=== PATIENT | female | born 1990 | race Native Hawaiian/Other Pacific Islander ===

== ENCOUNTER 2016-08-09 04:18 | Emergency (ER) | payer SELFPAY ==
--- NOTE | 2016-08-09 04:34 | ED ---
General Adult HPI - General Chief complaint: Vaginal Bleeding Stated complaint: Spotting 10 wks pg Time Seen by Provider: 08/09/16 04:20 Source: patient, RN notes reviewed Mode of arrival: ambulatory Limitations: no limitations - History of Present Illness Initial comments: This is a 26-year-old female who presents to the emergency department planning that she's having some vaginal spotting. Patient states she has about 12 weeks . Patient states she has a little abdominal pain probably to out of 10 but there is no significant abdominal cramping. Patient denies any dysuria hematuria urinary frequency. Patient denies any difficulty breathing or shortness of breath. Patient denies any injury or trauma. Patient denies any lightheadedness or dizziness. Patient denies any shortness of breath or chest pain. - Related Data Home Medications Medication Instructions Recorded Confirmed No Known Home Medications [No 08/09/16 08/09/16 Known Home Medications] Allergies Allergy/AdvReac Type Severity Reaction Status Date / Time No Known Allergies Allergy Verified 12/20/14 10:39 Review of Systems ROS Statement: Those systems with pertinent positive or pertinent negative responses have been documented in the HPI. ROS Other: All systems not noted in ROS Statement are negative. Past Medical History Past Medical History: No Reported History Additional Past Medical History / Comment(s): FX RIGHT WRIST (12/14/14)- STATES SHE HAS A SPLINT AND SLING ON. History of Any Multi-Drug Resistant Organisms: MRSA Date of last positivie culture/infection: 2010 MDRO Source:: knee Past Surgical History: Section Past Anesthesia/Blood Transfusion Reactions: No Reported Reaction Past Psychological History: No Psychological Hx Reported, Depression Smoking Status: Never smoker Past Alcohol Use History: Occasional Past Drug Use History: None Reported - Past Family History Mother Family Medical History: No Reported History General Exam - General Exam Comments Initial Comments: GENERAL: Patient is well-developed and well-nourished. Patient is nontoxic and well- hydrated and is in no acute distress. ENT: Neck is soft and supple. No significant lymphadenopathy is noted. Oropharynx is clear. Moist mucous membranes. Neck has full range of motion without eliciting any pain. EYES: The sclera were anicteric and conjunctiva were pink and moist. Extraocular movements were intact and pupils were equal round and reactive to light. Eyelids were unremarkable. PULMONARY: Unlabored respirations. Good breath sounds bilaterally. No audible rales rhonchi or wheezing was noted. CARDIOVASCULAR: There is a regular rate and rhythm without any murmurs gallops or rubs. ABDOMEN: Soft and nontender with normal bowel sounds. SKIN: Skin is clear with no lesions or rashes and otherwise unremarkable. NEUROLOGIC: Patient is alert and oriented x3. Cranial nerves II through XII are grossly intact. Motor and sensory are also intact. Normal speech, volume and content. Symmetrical smile. MUSCULOSKELETAL: Normal extremities with adequate strength and full range of motion. No lower extremity swelling or edema. No calf tenderness. LYMPHATICS: No significant lymphadenopathy is noted PSYCHIATRIC: Normal psychiatric evaluation. Limitations: no limitations Course Vital Signs 08/09/16 08/09/16 04:22 05:47 Temperature 98.5 F 98.1 F Pulse Rate 82 78 Respiratory 18 16 Rate Blood Pressure 109/62 116/58 O2 Sat by Pulse 100 98 Oximetry Medical Decision Making - Medical Decision Making Ultrasound showed a intrauterine 14 weeks 3 days - Lab Data Lab Results 08/09/16 Range/Units 04:33 Blood Type A Positive Blood Type Recheck No Disposition Clinical Impression: Threatened Disposition: HOME SELF-CARE Condition: Good Instructions: Threatened Miscarriage (ED) Additional Instructions: Patient should follow-up with her [facility] as soon as possible Referrals: Wm Barnes MD [Primary Care Provider] - 1-2 days Time of Disposition: 06:35
[2016-08-09 05:48] VITALS: RESP 16
[2016-08-09 06:41] VITALS: BP 112/69; PULSE 71; TEMP 97.9
--- NOTE | 2016-08-09 06:55 | US ---
PROCEDURE: US OB 2nd TRIMESTER HISTORY: 26-year-old female with pelvic pain. TECHNIQUE: Real-time sonographic evaluation of the female pelvis was performed. COMPARISON: None FINDINGS: Single live intrauterine gestation in variable presentation. BPD 2.7 CM 14 weeks 5 days HC 9.7 CM 14 weeks 3 days AC 8.7 CM 15 weeks 0 days FL 1.3 CM 13 weeks 6 days Estimated gestational age by this ultrasound is 14 weeks 3 days +/-1 week 0 days. Estimated weight is 98 g +/- 15 g. HC/AC ratio is 1.11 (normal for this is 1.08-1.37). cardiac activity measures approximately 144 bpm. anatomic survey not performed at this time. Placenta is fundal and posterior. Adjacent to the anterior edge of the placenta, there is a 2.5 x 2.0 x 0.8 cm ovoid anechoic focus with no evidence of internal color flow, most likely representing a small concepcion- gestational hematoma. Focal anterior uterine wall thickening, may be due to fibroid versus focal myometrial contraction. YUE is within normal limits measuring 10.7 CM. Cervix long and closed measuring approximately 3.7 CM. The maternal ovaries were visualized and demonstrate normal grayscale appearance. IMPRESSION: 1. Single live intrauterine gestation. 2. Estimated gestational age by this ultrasound is 14 weeks 3 days +/-1 week 0 days. Correlate with prior dating. 3. Evidence of a 2.5 centimeter concepcion-gestational hematoma adjacent to the anterior edge of the placenta as detailed above. 4. Other findings as detailed above. [employer] 08/09/16 07:00 Verify Receipt Verified receipt with SALINAS Keating, given to Dr. Juarez on 08/09 07:00 (-05:00)
== END 2016-08-09 06:40 | disposition home or self-care (01) ==
LOC: EC 04:18
DX: O20.0 Threatened abortion (principal); Z3A.14 14 weeks gestation of pregnancy; Z86.14 Personal history of Methicillin resistant Staphylococcus aureus infection
CPT/HCPCS: 36415; 76805; 84702; 86900; 86901; 99284

== ENCOUNTER → 2016-12-15 | Outpatient (CLI) | payer OTHER ==
[2016-12-15 13:22] LABS: CH 26.4; CHCM 32.1; HCT 34.1 % (34.0-46.0); HDW 3.53; HGB 11.4 gm/dL (11.4-16.0); Hypochromasia Moderate; MCH 27.8 pg (25.0-35.0); MCHC 33.6 g/dL (31.0-37.0); MCV 82.7 fL (80.0-100.0); Mean Platelet Volume 8.3; Poikilocytosis Slight; RBC 4.12 m/uL (3.80-5.40); RDW 14.3 % (11.5-15.5); WBC 6.1 k/uL (3.8-10.6)
[2016-12-15 19:12] LABS: Treponemal Ab Non-Reactive (Non-Reactive)
[2016-12-15 19:42] LABS: Non-African American GFR(MDRD) >60 (>60 ml/min/1.73 sqM)
[2016-12-15 20:14] LABS: Hepatitis B Surface Ag Index 0.04
[2016-12-16 07:32] LABS: Toxoplasma Antibody (IgG) <3.0 IU/mL (<7.2)
== END | disposition home or self-care (01) ==
LOC: LABWHC1 11:30
PROVIDERS: ATTEND Obstetrics & Gynecology
DX: Z34.83 Encounter for supervision of other normal pregnancy, third trimester (principal); Z3A.00 Weeks of gestation of pregnancy not specified
CPT/HCPCS: 36415; 82565; 82950; 85027; 86762; 86777; 86778; 86780; 86850; 86900; 86901; 87340; 87390

== ENCOUNTER → 2016-12-21 | Outpatient (CLI) | payer OTHER ==
[2016-12-21 12:26] LABS: Glucose 3 Hour, Gest 85 mg/dL
[2016-12-22 06:10] LABS: Toxoplasma Antibody (IgG) <3.0 IU/mL (<7.2)
== END | disposition home or self-care (01) ==
LOC: LABWHC1 08:15
PROVIDERS: ATTEND Obstetrics & Gynecology
DX: O24.419 Gestational diabetes mellitus in pregnancy, unspecified control (principal); Z3A.00 Weeks of gestation of pregnancy not specified
CPT/HCPCS: 36415; 82951; 82952; 86777; 86778

== ENCOUNTER 2017-02-01 05:59 | Inpatient (IN) | payer OTHER ==
[2017-01-31 13:38] VITALS: BMI 38.9
[2017-02-01] MEDS ORDERED: ceFAZolin 2 GM in SODIUM CHLORIDE 0.9% 100 ML IVPB ONE (06:15)
[2017-02-01] MEDS ORDERED: CITRIC ACID-SODIUM CITRATE 15 ML CUP PO ONE (06:15)
[2017-02-01 06:30] LABS: Anisocytosis Slight; Basophils # (A) 0.1 k/uL (0-0.2); Basophils % (A) 1 %; Eosinophils # (A) 0.1 k/uL (0-0.7); Eosinophils % (A) 1 %; HCT 35.4 % (34.0-46.0); HDW 3.38; HGB 11.2 gm/dL (11.4-16.0); Hypochromasia Slight; Luc # (Auto) 0.18; Luc % (Auto) 2; Lymphocytes # (A) 2.6 k/uL (1.0-4.8); Lymphocytes % (A) 29 %; MCH 25.7 pg (25.0-35.0); MCHC 31.5 g/dL (31.0-37.0); MCV 81.7 fL (80.0-100.0); Mean Platelet Volume 9.3; Monocytes # (A) 0.4 k/uL (0-1.0); Monocytes % (A) 4 %; Neutrophils # (A) 5.7 k/uL (1.3-7.7); Neutrophils % (A) 64 %; RBC 4.33 m/uL (3.80-5.40); RDW 16.9 % (11.5-15.5); WBC 8.9 k/uL (3.8-10.6); WBC (Perox) 8.51
[2017-02-01] MEDS: LACTATED RINGERS 1,000 ML IV SCH ×2 (06:38→11:00)
[2017-02-01] MEDS ORDERED: ONDANSETRON 4 MG/2 ML VIAL ONE (07:48)
[2017-02-01] MEDS ORDERED: KETOROLAC 30 MG/ML 1 ML VIAL ONE (07:48)
[2017-02-01] MEDS ORDERED: OXYTOCIN 10 UNIT/ML 1 ML VIAL ONE (07:48)
[2017-02-01] MEDS ORDERED: HYDROmorphone (PF) 1 MG/ML ONE (07:48)
[2017-02-01] MEDS ORDERED: diphenhydrAMINE 50 MG/ML 1 ML VIAL ONE (07:48)
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
--- NOTE | 2017-02-01 08:44 | P.OP ---
Date of Procedure: 02/01/17 Preoperative Diagnosis: Intrauterine at term family planning Postoperative Diagnosis: Same Procedure(s) Performed: Repeat low transverse section with bilateral partial salpingectomy Implants: Anesthesia: spinal Surgeon: Jovany Tavera Imposer #1: Tri Pearce Pathology: other (Placenta) Condition: stable Disposition: floor Indications for Procedure: Operative Findings: Male scores of 8 and 9 at one and 5 minutes respectively and the weight was 8 lbs. 15 oz. Description of Procedure: Patient was taken to the operating suite where a spinal anesthetic was found be adequate. She was prepped and draped in the normal sterile fashion and placed in dorsal supine position with leftward tilt. Initially a Pfannenstiel skin incision was made and this incision was then carried through to underlying layer of the fascia was second knife. Fascia was then nicked in the midline and this opening was extended laterally with Vilchis scissors. Superior and inferior aspect of this incision were then grasped tented up and bluntly and sharply dissected off the rectus muscles. Rectus muscles were then divided in the midline and sharp dissection through the peritoneum was made. This opening was then extended superiorly and inferiorly with good visualization of both bowel bladder. Bladder blade was then placed and the bladder flap was identified entered with Metzenbaum scissors and carried across face the uterus with Metzenbaum scissors. Knife was then used to incise uterus this opening was fully developed with hemostat and extended bluntly. Head was then atraumatically delivered and a nuchal cord 1 reduced. Anterior posterior shoulders were then delivered with gentle upward and downward traction followed by the remainder the baby. Mouth nares were bulb suctioned and nursery personnel was present to assume care. Umbilical cord was then clamped cut usual fashion Placenta was then delivered intact and Pitocin was added to the IV. Uterus was then exteriorized cleared of clots and debris and closed in 2 layers with 0 Vicryl suture. Once excellent hemostasis was obtained attention was turned to the fallopian tubes where first the right tube the left tube was grasped with hemostat approximately 2 cm from uterine cornu and a window was created in the mesosalpinx. Once this was done 2 proximal to distal 2-0 silk sutures were placed and intervening segment was excised and tips were cauterized. Blood and debris was then suctioned from the posterior cul-de-sac and uterus was reinserted into the abdomen. Peritoneal layer was then closed 0 Vicryl suture fascial layer was closed with 0 Vicryl suture one layer of 3-0 Vicryl was placed in deep subcuticular tissues reapproximate the skin and close space and skin was closed [place]. Sponge, lap, needle counts were correct 2 and patient was then taken to the recovery room in stable and satisfactory condition.
[2017-02-01] MEDS ORDERED: ACETAMINOPHEN TAB 325 MG TAB PO PRN (15:44)
[2017-02-01] MEDS ORDERED: ONDANSETRON 4 MG/2 ML VIAL IVP PRN (15:44)
[2017-02-01] MEDS ORDERED: diphenhydrAMINE 50 MG/ML 1 ML VIAL IVP PRN ×2 (15:44)
[2017-02-01] MEDS ORDERED: ZOLPIDEM 5 MG TAB PO PRN (15:44)
[2017-02-01] MEDS ORDERED: SIMETHICONE 80 MG CHEWABLE PO PRN (15:44)
[2017-02-01] MEDS ORDERED: diphenhydrAMINE 50 MG CAP PO PRN (15:44)
[2017-02-01] MEDS ORDERED: KETOROLAC 30 MG/ML 1 ML VIAL IVP PRN (15:44)
[2017-02-01] MEDS ORDERED: METOCLOPRAMIDE 5 MG/ML 2 ML VIAL IVP PRN (15:44)
[2017-02-01] MEDS ORDERED: NALOXONE 0.4 MG/ML 1 ML VIAL IV PRN (15:44)
[2017-02-01] MEDS ORDERED: diphenhydrAMINE 25 MG CAP PO PRN (15:44)
[2017-02-01] MEDS ORDERED: Acetaminophen-Codeine 300-30mg TAB PO PRN (15:44)
[2017-02-01] MEDS ORDERED: LACTATED RINGERS 1,000 ML IV SCH (15:45)
[2017-02-01] MEDS: SENNOSIDES-DOCUSATE SODIUM 1 EACH TAB PO SCH (20:45)
[2017-02-02] MEDS: IBUPROFEN 600 MG TAB PO PRN ×2 (05:25→12:17)
[2017-02-02 07:38] LABS: Anisocytosis Slight; Basophils % (A) 0 %; CH 24.9; Eosinophils # (A) 0.1 k/uL (0-0.7); Eosinophils % (A) 1 %; HCT 29.4 % (34.0-46.0); Hypochromasia Marked; Luc # (Auto) 0.17; Luc % (Auto) 2; Lymphocytes # (A) 1.4 k/uL (1.0-4.8); Lymphocytes % (A) 18 %; MCH 25.9 pg (25.0-35.0); MCV 80.8 fL (80.0-100.0); Mean Platelet Volume 7.3; Monocytes # (A) 0.3 k/uL (0-1.0); Monocytes % (A) 4 %; Neutrophils # (A) 5.9 k/uL (1.3-7.7); Neutrophils % (A) 75 %; RBC 3.64 m/uL (3.80-5.40); RDW 16.1 % (11.5-15.5); WBC 7.8 k/uL (3.8-10.6); WBC (Perox) 8.29
[2017-02-02] MEDS: SENNOSIDES-DOCUSATE SODIUM 1 EACH TAB PO SCH ×2 (07:54→19:40)
[2017-02-02 08:03] LABS: HGB 9.4 gm/dL (11.4-16.0)
--- NOTE | 2017-02-02 10:05 | P.PN ---
Progress Note - Text Date: 02/02/2017 Time: 706 The patient is status post section Vital signs stable VAS: 0-10 Patient has no complaints of pain. The patient incurred some minimal itching yesterday, this itching is now subsiding. Pain meds to be managed by service.
--- NOTE | 2017-02-02 13:25 | P.PNOBGPC ---
Subjective - Subjective Principal diagnosis: Postop day 1 Interval history: Overall Gabriela is doing very well. She is ambulating, voiding and she is tolerating her diet. She voices no complaints. Her incision is clean dry and intact. Patient reports: Reports appetite normal, Reports voiding normally, Reports pain well controlled, Reports ambulating normally [place]: doing well Objective - Vital Signs Latest vital signs: Vital Signs Temp Pulse Resp BP Pulse Ox 02/02/17 08:00 98.6 F 91 20 122/66 99 02/02/17 04:00 98.2 F 78 16 124/78 98 02/02/17 00:00 98.2 F 82 16 102/63 02/01/17 20:00 98.0 F 73 16 107/67 98 02/01/17 16:00 96.1 F L 77 15 113/61 98 Intake and Output 02/01/17 02/02/17 02/02/17 22:59 06:59 14:59 Output Total 400 900 Balance -400 -900 Output: Urine 400 900 Uretheral (Gomez) 200 Other: # Voids 0 1 - Exam Lungs: bilateral: normal Chest: Normal S1, Normal S2 Extremities: Present: normal Abdomen: Present: normal appearance, soft. Absent: distention, tenderness Incision: Present: normal, dry, intact Uterus: Present: normal, firm - Labs Labs: Abnormal Lab Results - Last 24 Hours (Table) 02/02/17 Range/Units 07:00 RBC 3.64 L (3.80-5.40) m/uL Hgb 9.4 L D (11.4-16.0) gm/dL Hct 29.4 L (34.0-46.0) % RDW 16.1 H (11.5-15.5) %
[2017-02-02] MEDS: Acetaminophen-Codeine 300-30mg TAB PO PRN ×2 (16:23→23:29)
[2017-02-02 23:34] VITALS: BP 117/69
[2017-02-03] MEDS: IBUPROFEN 600 MG TAB PO PRN ×2 (04:55→13:53)
[2017-02-03] MEDS: SENNOSIDES-DOCUSATE SODIUM 1 EACH TAB PO SCH (08:53)
--- NOTE | 2017-02-03 09:05 | P.DS ---
Providers Date of admission: 02/01/17 05:59 Expected date of discharge: 02/03/17 Attending physician: Jovany Tavera Primary care physician: Stated None Hospital Course: Gabriela is doing very well postop day 2. She is involuting, voiding, and she is tolerating her diet. She voices no complaint. We'll plan discharged home today we'll plan to remove zi today. Vital signs are stable and afebrile. Heart regular, lungs clear, extremities without pain. Abdomen is soft uterus is firm lochia is reported be light. Incisions otherwise clean dry and intact. Assessment post op day 2. Plan discharged home. Remove zi today. Discharge instructions thoroughly reviewed with the patient and all questions are answered for her prior to discharge. Prescriptions for pain medication and provided including Motrin and Tylenol No. 3. She'll follow up with me in 1 week. Patient Condition at Discharge: Good Plan - Discharge Summary New Discharge Prescriptions: New Acetaminophen-Codeine 300-30mg [Tylenol #3] 1 tab PO Q4H PRN #30 tablet PRN Reason: Pain Ibuprofen [Motrin] 600 mg PO Q6HR PRN #30 tab PRN Reason: Pain No Action Acetaminophen Tab [Tylenol Tab] 650 mg PO Q6H PRN PRN Reason: Pain Calcium Carbonate [Tums] 500 mg PO QID PRN PRN Reason: Heartburn Discharge Medication List Acetaminophen Tab [Tylenol Tab] 650 mg PO Q6H PRN 02/01/17 [History] Calcium Carbonate [Tums] 500 mg PO QID PRN 02/01/17 [History] Acetaminophen-Codeine 300-30mg [Tylenol #3] 1 tab PO Q4H PRN #30 tablet [Rx] Ibuprofen [Motrin] 600 mg PO Q6HR PRN #30 tab 02/03/17 [Rx] Follow up Appointment(s)/Referral(s): Jovany Tavera DO [Doctor of Osteopathic Medicine] - 1 Week Activity/Diet/Wound Care/Special Instructions: No heavy lifting, limit stairs and driving and pelvic rest. If any high temperatures, heavy bleeding, or severe pain call my office. Wound care instructions reviewed with the patient she washed incision gently with soap and water approximately 2 times a day. Discharge Disposition: HOME SELF-CARE
[2017-02-03 10:34] VITALS: PULSE 86; RESP 14; TEMP 98.4
== END 2017-02-03 16:29 | disposition home or self-care (01) | DRG 766 ==
LOC: 4FBP 05:59
PROVIDERS: ADMIT Obstetrics & Gynecology; ATTEND Obstetrics & Gynecology
PROC: 0UB70ZZ Excision of Bilateral Fallopian Tubes, Open Approach (ICD-10-PCS; 2017-02-01)
PROC: 10D00Z1 Extraction of Products of Conception, Low, Open Approach (ICD-10-PCS; principal; 2017-02-01 08:00)
DX: O34.211 Maternal care for low transverse scar from previous cesarean delivery (principal); Z30.2 Encounter for sterilization; Z37.0 Single live birth; Z3A.00 Weeks of gestation of pregnancy not specified; Z79.899 Other long term (current) drug therapy; Z86.14 Personal history of Methicillin resistant Staphylococcus aureus infection; Z86.59 Personal history of other mental and behavioral disorders
CPT/HCPCS: 85025; 86850; 86900; 86901; 88302; 88307

== ENCOUNTER 2020-12-17 | Emergency (ER) | payer OTHER | END 2020-12-17 13:19 | disposition home or self-care (01) | DX: K80.10 Calculus of gallbladder with chronic cholecystitis without obstruction (principal) | CPT/HCPCS: 36415; 76705; 80053; 81001; 81025; 82150; 83690; 85025; 96374; 99284 ==

== ENCOUNTER 2021-03-06 08:57 | Day surgery (SDC) | payer OTHER ==
[2021-03-03 11:53] VITALS: BMI 35.1
--- NOTE | 2021-03-06 06:01 | P.GSHP ---
History of Present Illness H&P Date: 03/06/21 CHIEF COMPLAINT: Cholecystitis HISTORY OF PRESENT ILLNESS: The patient is a 31-year-old female who presents with history of epigastric including right upper quadrant abdominal pain. She underwent diagnostic studies for her gallbladder. Separately her clinical picture was consistent with cholecystitis. Now she presents for surgical intervention. PAST MEDICAL HISTORY: Please see list PAST SURGICAL HISTORY: Please see list MEDICATIONS: Please see list ALLERGIES: Please see list SOCIAL HISTORY: Please see list FAMILY HISTORY: Please see list REVIEW OF ORGAN SYSTEMS: CONSTITUTIONAL: No reports of fevers or chills. HEENT: Denies any troubles with the vision or hearing. ENDOCRINE: No reports of hypothyroidism. No diabetes. RESPIRATORY: No recent pneumonias. CARDIOVASCULAR: Denies chest pain or palpitations GI: No blood in stools or constipation. MUSCULOSKELETAL: Has occasional joint pain including back pain. NEURO: No seizure disorders or headaches. No recent stroke. PSYCH: No depression or suicidal ideation. GENITOURINARY: No active blood in urine. No urinary hesitancy. HEMATOLOGIC: No personal or family history of DVTs or pulmonary emboli. SKIN: No skin cancer. PHYSICAL EXAM: VITAL SIGNS: Afebrile vital signs stable GENERAL: Well-developed pleasant in no acute distress. HEENT: No scleral icterus. Extraocular movements grossly intact. Moist buccal mucosa. NECK: Supple without lymphadenopathy. CHEST: Unlabored respirations. Equal bilateral excursions. CARDIOVASCULAR: Regular rate regular rhythm rhythm. Distal 2+ pulses. ABDOMEN: Soft, nondistended. MUSCULOSKELETAL: No clubbing, cyanosis, or edema. NEURO: Cranial nerves II to XII within normal limits. No focal or lateralizing signs. PSYCH: Alert and oriented to person, place and time. SKIN: Well-perfused good skin turgor. ASSESSMENT: 1. Chronic cholecystitis 2. Symptomatic gallstones. PLAN: 1. Will need a robotic cholecystectomy possible open. Benefits and risks were described. 2. Heparin for DVT prophylaxis 5000 units. 3. Antibiotic prophylaxis. Past Medical History Past Medical History: No Reported History Additional Past Medical History / Comment(s): FX RIGHT WRIST (12/14/14) CHOLELITHIASIS History of Any Multi-Drug Resistant Organisms: MRSA Date of last positivie culture/infection: 2010 MDRO Source:: knee Past Surgical History: Section, Orthopedic Surgery, Tubal Ligation Additional Past Surgical History / Comment(s): ORIF RT WRIST Past Anesthesia/Blood Transfusion Reactions: Postoperative Nausea & Vomiting (PONV) Smoking Status: Never smoker - Past Family History Mother Family Medical History: No Reported History Medications and Allergies Home Medications Medication Instructions Recorded Confirmed Type Phentermine HCl [Adipex-P] 37.5 mg PO DAILY 03/03/21 03/03/21 History Allergies Allergy/AdvReac Type Severity Reaction Status Date / Time No Known Allergies Allergy Verified 03/03/21 11:43
[~2021-03-06 08:57] MED LIST: ACETAMINOPHEN TAB 500 MG TAB PO PRN; DEXAMETHASONE SOD PHOSPHATE 4 MG/ML 1 ML VIAL IV ONE; GABAPENTIN 300 MG CAP PO PRN; HEPARIN SODIUM,PORCINE/PF 5,000 UNIT/0.5 ML SYRINGE SQ PRN; INDOCYANINE GREEN 25 MG VIAL IV PRN; LACTATED RINGERS 1,000 ML IV SCH; MELOXICAM 7.5 MG TAB PO PRN; MIDAZOLAM 2 MG/2 ML VIAL IV PRN; ONDANSETRON 4 MG/2 ML VIAL IVP ONE; SCOPOLAMINE 1.5MG/72HR PATCH TRANSDERM ONE; SCOPOLAMINE 1.5MG/72HR PATCH TRANSDERM PRN
[2021-03-06 09:42] LABS: Basophils % (A) 0 %; Eosinophils # (A) 0.1 k/uL (0-0.7); Eosinophils % (A) 1 %; HCT 41.2 % (34.0-46.0); HGB 13.6 gm/dL (11.4-16.0); Lymphocytes # (A) 1.7 k/uL (1.0-4.8); Lymphocytes % (A) 28 %; MCHC 32.9 g/dL (31.0-37.0); MCV 91.2 fL (80.0-100.0); Monocytes # (A) 0.3 k/uL (0-1.0); Monocytes % (A) 5 %; Neutrophils # (A) 3.8 k/uL (1.3-7.7); Neutrophils % (A) 63 %; Platelet Count 323 k/uL (150-450); RBC 4.52 m/uL (3.80-5.40); RDW 13.2 % (11.5-15.5); WBC 6.1 k/uL (3.8-10.6)
[2021-03-06] MEDS ORDERED: INDOCYANINE GREEN 25 MG VIAL IV STA (09:43)
[2021-03-06 09:59] LABS: ALT 31 U/L (4-34); African American GFR (CKD) >90 (>60 ml/min/1.73 sqM); Albumin 4.3 g/dL (3.5-5.0); Anion Gap 11 mmol/L; Blood Urea Nitrogen 15 mg/dL (7-17); Calcium 9.1 mg/dL (8.4-10.2); Carbon Dioxide 19 mmol/L (22-30); Chloride 112 mmol/L (98-107); Glucose 94 mg/dL (74-99); Non-African American GFR(CKD) >90 (>60 ml/min/1.73 sqM); Sodium 142 mmol/L (137-145); Total Bilirubin 0.6 mg/dL (0.2-1.3); Total Protein 7.2 g/dL (6.3-8.2)
[2021-03-06 10:01] LABS: AST 30 U/L (14-36); Alkaline Phosphatase 50 U/L (38-126); Potassium 4.6 mmol/L (3.5-5.1)
[2021-03-06] MEDS ORDERED: HYDROmorphone (PF) 1 MG/ML ONE (11:46)
[2021-03-06] MEDS ORDERED: INDOCYANINE GREEN 25 MG VIAL IV ONE (11:46)
[2021-03-06] MEDS ORDERED: GLYCOPYRROLATE 0.2 MG/ML 2 ML VIAL ONE (11:46)
[2021-03-06] MEDS ORDERED: SUCCINYLCHOLINE CHLORIDE 100 MG/5 ML SYR IV ONE (11:46)
[2021-03-06] MEDS ORDERED: MIDAZOLAM 2 MG/2 ML VIAL ONE (11:46)
[2021-03-06] MEDS ORDERED: ONDANSETRON 4 MG/2 ML VIAL ONE (11:46)
[2021-03-06] MEDS ORDERED: diphenhydrAMINE 50 MG/ML 1 ML VIAL ONE ×2 (11:46→13:21)
[2021-03-06] MEDS ORDERED: fentaNYL (PF) 50 MCG/ML 2 ML AMP ONE (11:46)
[2021-03-06] MEDS ORDERED: NEOSTIGMINE 1 MG/ML 10 ML VIAL ONE (11:46)
[2021-03-06] MEDS ORDERED: PROPOFOL 10 MG/ML 20 ML VIAL IV ONE (11:46)
[2021-03-06] MEDS ORDERED: ROCURONIUM 10 MG/ML (5 ML VIAL) IV ONE (11:46)
[2021-03-06] MEDS ORDERED: LIDOCAINE 1% INJ 10MG/ML (20 ML MDV) ONE (11:46)
[2021-03-06] MEDS ORDERED: LIDOCAINE 1%-EPI 1:100,000 20 ML VIAL SQ ONE (12:12)
[2021-03-06] MEDS ORDERED: LACTATED RINGERS 1,000 ML IV ONE ×2 (12:49→13:54)
[2021-03-06] MEDS ORDERED: KETOROLAC 15 MG/ML 1 ML VIAL IVP PRN (12:58)
[2021-03-06] MEDS ORDERED: diphenhydrAMINE 50 MG/ML 1 ML VIAL IVP ONE (13:24)
[2021-03-06] MEDS ORDERED: KETOROLAC 15 MG/ML 1 ML VIAL IVP ONE (13:25)
[2021-03-06] MEDS: HYDROmorphone 0.5 MG/0.5 ML SYRINGE IVP PRN ×2 (13:27→13:40)
[2021-03-06] MEDS ORDERED: ONDANSETRON 4 MG/2 ML VIAL IVP ONE (13:30)
[2021-03-06 13:37] VITALS: TEMP 96.9
[2021-03-06 13:52] VITALS: RESP 16
[2021-03-06 14:39] VITALS: BP 103/69; PULSE 89
--- NOTE | 2021-03-07 11:25 | P.OP ---
Date of Procedure: 03/06/21 Description of Procedure: SURGEON: ZURI SOW MD PREOPERATIVE DIAGNOSES: 1. Symptomatic gallstones 2. Chronic cholecystitis 3. Morbid obesity due to excess calories, BMI 35.6 POSTOPERATIVE DIAGNOSES: 1. Symptomatic gallstones 2. Chronic cholecystitis 3. Morbid obesity due to excess calories, BMI 35.6 4. Peritoneal adhesions, right upper quadrant OPERATION: 1. Robotic-assisted da Eliu Xi laparoscopic lysis of adhesions 2. Robotic-assisted da Eliu Xi laparoscopic cholecystectomy, multiport with FIREFLY ESTIMATED BLOOD LOSS: 5 mL. SPECIMENS REMOVED: Gallbladder. COMPLICATIONS: None. OPERATIVE FINDINGS: 1. Peritoneal adhesions involving the gallbladder including infundibulum. 2. Infundibulum with moderate distention causing torsion with cystic duct anterior to gallbladder 3. Moderate distended gallbladder adding complexity to the case INDICATIONS: The patient is a 31 year-old female who presents with epigastric right upper quadrant pain, symptomatic gallstones. Surgical intervention with cholecystectomy was described. Robotic assisted laparoscopic approach was described. Benefits and risks of the procedure including but not limited to bleeding, infection, injury to the biliary tree was reviewed. Informed consent was obtained. DESCRIPTION OF PROCEDURE: Patient was brought to the operating room, placed in supine position. After general induction, the abdomen had been prepped and draped in standard sterile fashion. The robotic da Eliu XI system was primed. After a timeout protocol was performed, the patient had been prepped and draped in standard sterile fashion. The patient was injected with indocyanine green. A 5 mm 0 degrees laparoscopic trocar entry was performed along the left upper quadrant. The abdomen insufflated to 15 mmHg pressure which was tolerated well. Diagnostic laparoscopy demonstrated no injury to bowel viscera or mesentery. The liver surface was unremarkable. A moderately distended gallbladder was identified adding complexity to the case. Next, two 8 mm robotic ports were placed along the right upper abdomen. The camera 8-mm port was maintained along the epigastrium. Another 8 mm port was placed along the left upper abdominal wall after exchanging the 5 mm port. Please note that the ports were placed at least 10 to 15 cm away from the target anatomy of the gallbladder. The robot was docked along the left lateral abdomen. The patient was repositioned in reverse Trendelenburg position with the right side up. Using a grasper for arm 3, a grasper for arm 4, including hook cautery for arm 1, the robotic system was docked and primed as described. Instruments were interchanged by the school health assistant including hook cautery, Bovie cautery and clip appliers. I had sat at the console. Moderate peritoneal adhesions were identified involving the body including infundibulum and cystic structures of the gallbladder requiring extensive lysis of adhesions over 30 minutes using hook cautery. The infundibulum was distended and found rotated posterior to the cystic duct. The cystic duct was anterior and adhered to the gallbladder adding complexity to the case requiring dome down technique. The gallbladder was reflected towards the dome of the liver. The gallbladder was moderately distended adding complexity to the case. Using a sponge, the liver was reflected towards the diaphragm and starting at the gallbladder fundus, hook cautery was used to find the avascular plane between the liver and the gallbladder. Next, indocyanine green was used to confirm the common bile duct as well as cystic duct. The cystic duct was short and dissection was performed at the junction of the cystic duct and infundibulum. The infundibulum was retracted laterally to expose the cystic duct away from the common bile duct. The cystic duct was dissected free from its surrounding tissue. FIREFLY was used to identify the cystic structures. A critical view of safety was obtained. Large PLASTIC clips were used throughout the entire case. Using a clip highway technician, a clip was placed at the junction of the infundibulum and cystic duct. The cystic duct was divided using vessel sealer. Next, the cystic artery was divided using vessel sealer. Electro-Bovie cautery and vessel sealer was used to remove the gallbladder without decompression. Hemostasis was checked and found to be adequate. The robot was undocked. I re-scrubbed into the case. A 10 mm Endo Catch bag was used to remove the gallbladder in total via the left upper quadrant incision after widening the incision. The specimen was removed from the abdominal cavity. All pneumoperitoneum instruments were evacuated from the abdominal cavity. The incisions were cleansed using dilute hydrogen peroxide. The incisions were reapproximated using 4-0 Monocryl in an interrupted subcuticular fashion. Please note along the trocar sites, local anesthetic was placed as a field block prior to insertion of all instruments. Liquid glue was applied to the skin. At the end of the procedure needle, sponge, and instrument count had been verified correct by the neurosurgical nurse. The patient was transferred to postanesthesia care unit in stable condition. Intraoperative films were shared with the patient's family who were pleased with the level of care. Plan - Discharge Summary Discharge Rx Participant: Yes New Discharge Prescriptions: New Simethicone [Gas-X] 125 mg PO AC-TID PRN #20 cap PRN Reason: Pain Ibuprofen [Motrin] 600 mg PO Q8HR PRN #30 tab PRN Reason: Pain Acetaminophen Tab [Tylenol Tab] 1,000 mg PO Q6HR PRN #30 tablet PRN Reason: Pain Continue Phentermine HCl [Adipex-P] 37.5 mg PO DAILY Discharge Medication List Phentermine HCl [Adipex-P] 37.5 mg PO DAILY 03/03/21 [History] Acetaminophen Tab [Tylenol Tab] 1,000 mg PO Q6HR PRN #30 tablet 03/06/21 [Rx] Ibuprofen [Motrin] 600 mg PO Q8HR PRN #30 tab 03/06/21 [Rx] Simethicone [Gas-X] 125 mg PO AC-TID PRN #20 cap 03/06/21 [Rx] Follow up Appointment(s)/Referral(s): Zuri Sow MD [STAFF PHYSICIAN] - 03/17/21 5:00 pm Patient Instructions/Handouts: *[facility] - Laparoscopic Cholecystectomy Discharge Instructions, *[facility] - Managing Your Pain After Surgery Without Opioids, *[facility] - (Anesthesia) Discharge Instructions Outpatient Surgery, *[facility] - Scopalamine Patch Instructions, Low Fat Diet (DC) Activity/Diet/Wound Care/Special Instructions: Recommend low-fat diet for the next 2 days. No lifting over 10 pounds in 2 weeks until March 20. May shower. No bath tub soaks for two weeks until March 20. Diet as tolerated. Use Tylenol, simethicone and ibuprofen or Aleve scheduled for the next 24-48 hours for best pain relief. Use ice along incisions for today to prevent swelling. Discharge Disposition: HOME SELF-CARE
== END 2021-03-06 15:06 | disposition home or self-care (01) ==
LOC: OR 08:57
PROVIDERS: ATTEND Surgery Plastic and Reconstructive Surgery
DX: K80.10 Calculus of gallbladder with chronic cholecystitis without obstruction (principal); E66.01 Morbid (severe) obesity due to excess calories; Z68.35 Body mass index [BMI] 35.0-35.9, adult; K66.0 Peritoneal adhesions (postprocedural) (postinfection)
CPT/HCPCS: 47562; 49329; S2900; 80053; 81025; 85025; 88304